=== PATIENT | female | born 1960 | race Caucasian/White ===

== ENCOUNTER 2018-07-25 22:34 | Emergency (ER) | payer BC ==
[~2018-07-25] VITALS: Ht 154.9 cm; Wt 102.3 kg
[2018-07-25] MEDS ORDERED: ONDANSETRON 4MG/2ML VIAL (J2405) As Ordered ONE (22:57)
[2018-07-25] MEDS ORDERED: ONDANSETRON 4MG/2ML VIAL (J2405) IV ONE (23:15)
[2018-07-25] MEDS ORDERED: NS 1,000 ML IV ONE (23:15)
[2018-07-25 23:58] LABS: BASO # 0.1 10^3/uL (0.0-0.2); BASO % 0.3 % (0.0-1.0); EOS % 0.1 % (0.0-3.0); HEMATOCRIT 45.9 % (36.0-47.0); HEMOGLOBIN 15.1 g/dl (12.0-15.5); LYMPH # 0.5 10^3/uL (1.5-4.5); LYMPH % 2.8 % (24.0-44.0); MEAN CORPUSCULAR HEMOGLOBIN 30.1 pg (27.0-33.0); MEAN CORPUSCULAR HGB CONC 32.9 g/dl (32.0-36.5); MEAN CORPUSCULAR VOLUME 91.4 fl (80.0-96.0); MONO # 0.9 10^3/uL (0.0-0.8); MONO % 4.7 % (0.0-5.0); NEUTROPHILS # 17.5 10^3/uL (1.8-7.7); NEUTROPHILS % 91.6 % (36.0-66.0); PLATELET COUNT, AUTOMATED 363 10^3/uL (150-450); RED BLOOD COUNT 5.02 10^6/uL (4.00-5.40); WHITE BLOOD COUNT 19.1 10^3/uL (4.0-10.0)
[2018-07-26 00:12] LABS: PARTIAL THROMBOPLASTIN TIME 22.8 SECONDS (25.4-37.6); PROTHROMBIN TIME 13.3 SECONDS (12.1-14.4)
[2018-07-26] MEDS ORDERED: SYNT25TA PO (00:14)
[2018-07-26] MEDS ORDERED: PRED1TABL PO (00:14)
[2018-07-26] MEDS ORDERED: WELLTAB40 PO (00:14)
[2018-07-26] MEDS ORDERED: HYDR7.5T66 PO (00:14)
[2018-07-26] MEDS ORDERED: TORS20TA2 PO (00:14)
[2018-07-26] MEDS ORDERED: KETOROLAC 30 MG/ML VIAL (J1885) IV ONE (00:15)
[2018-07-26 00:24] LABS: ALT/SGPT 27 U/L (12-78); BILIRUBIN,DIRECT 0.3 MG/DL (0.0-0.2); BLOOD UREA NITROGEN 17 MG/DL (7-18); CALCIUM LEVEL 8.7 MG/DL (8.5-10.1); CARBON DIOXIDE LEVEL 25 MEQ/L (21-32); CHLORIDE LEVEL 107 MEQ/L (98-107); CPK CREATINE PHOSPHOKINASE 111 U/L (26-192); CREATININE FOR GFR 0.88 MG/DL (0.55-1.30); GLOMERULAR FILTRATION RATE > 60.0 (>51); GLUCOSE, FASTING 138 MG/DL (70-100); LIPASE 110 U/L (73-393); MB/CK RELATIVE INDEX 1.98 (< OR =4); POTASSIUM SERUM 3.8 MEQ/L (3.5-5.1); SODIUM LEVEL 140 MEQ/L (136-145); TOTAL PROTEIN 7.4 GM/DL (6.4-8.2); TROPONIN I < 0.02 NG/ML (< 0.10)
[2018-07-26] MEDS ORDERED: METOCLOPRAMIDE INJ 10MG/2ML VIAL (J2765) IV ONE (00:30)
[2018-07-26] MEDS ORDERED: REGL10TA6 PO (01:46)
[2018-07-26] MEDS ORDERED: ONDA4TAB6 PO (01:46)
[2018-07-26 02:13] VITALS: BP 101/59
== END 2018-07-26 02:16 | disposition home or self-care (01) ==
LOC: M ED 22:34
DX: A08.39 Other viral enteritis (principal)
CPT/HCPCS: 80048; 80076; 82550; 82553; 83690; 84484; 85025; 85610; 85730; 87507; 93041; 96361; 96374; 96375; 99285; J1885; J2405; J2765

== ENCOUNTER → 2018-09-21 | Outpatient (REF) | payer BC ==
[~2018-09-21] MED LIST: HYDR7.5T66 PO; ONDA4TAB6 PO; PRED1TABL PO; REGL10TA6 PO; SYNT25TA PO; TORS20TA2 PO; WELLTAB40 PO
[2018-09-21 18:39] LABS: PERCENT SATURATION 26.6 % (13.2-45.0)
[2018-09-21 18:42] LABS: FOLATE 14.3 NG/ML
[2018-09-21 19:04] LABS: HEMATOCRIT 40.4 % (36.0-47.0); HEMOGLOBIN 13.2 g/dl (12.0-15.5); MEAN CORPUSCULAR HEMOGLOBIN 30.4 pg (27.0-33.0); MEAN CORPUSCULAR HGB CONC 32.7 g/dl (32.0-36.5); MEAN CORPUSCULAR VOLUME 93.1 fl (80.0-96.0); PLATELET COUNT, AUTOMATED 318 10^3/uL (150-450); RED BLOOD COUNT 4.34 10^6/uL (4.00-5.40); WHITE BLOOD COUNT 9.4 10^3/uL (4.0-10.0)
== END ==
LOC: M LAB REF 17:38
DX: D50.9 Iron deficiency anemia, unspecified (principal); D51.9 Vitamin B12 deficiency anemia, unspecified; D52.9 Folate deficiency anemia, unspecified; D55.9 Anemia due to enzyme disorder, unspecified; R53.83 Other fatigue

== ENCOUNTER → 2019-02-25 | Outpatient (REF) | payer BC ==
[2019-02-25 11:54] LABS: ALT/SGPT 31 U/L (12-78); BILIRUBIN,TOTAL 0.8 MG/DL (0.2-1.0); BLOOD UREA NITROGEN 16 MG/DL (7-18); CALCIUM LEVEL 9.2 MG/DL (8.5-10.1); CARBON DIOXIDE LEVEL 31 MEQ/L (21-32); CHLORIDE LEVEL 106 MEQ/L (98-107); CREATININE FOR GFR 0.79 MG/DL (0.55-1.30); GLOMERULAR FILTRATION RATE > 60.0 (>51); GLUCOSE, FASTING 91 MG/DL (70-100); POTASSIUM SERUM 4.5 MEQ/L (3.5-5.1); SODIUM LEVEL 141 MEQ/L (136-145); TOTAL PROTEIN 7.3 GM/DL (6.4-8.2)
[2019-02-25 12:02] LABS: BLOOD UREA NITROGEN 17 MG/DL (7-18); CARBON DIOXIDE LEVEL 30 MEQ/L (21-32); CHLORIDE LEVEL 106 MEQ/L (98-107); CREATININE FOR GFR 0.76 MG/DL (0.55-1.30); GLOMERULAR FILTRATION RATE > 60.0 (>51); GLUCOSE, FASTING 89 MG/DL (70-100); POTASSIUM SERUM 4.5 MEQ/L (3.5-5.1); SODIUM LEVEL 140 MEQ/L (136-145)
[2019-02-25 12:32] LABS: HEMOGLOBIN A1c 5.8 %
== END ==
LOC: M SFHCLERA 09:04
PROVIDERS: ATTEND Family Medicine
DX: E03.9 Hypothyroidism, unspecified (principal); E83.110 Hereditary hemochromatosis; I10 Essential (primary) hypertension

== ENCOUNTER 2019-07-19 21:28 | Emergency (ER) | payer BC ==
[~2019-07-19] VITALS: Ht 154.9 cm; Wt 112.3 kg
[2019-07-19] MEDS ORDERED: LISI-1046 PO (21:34)
[2019-07-19] MEDS ORDERED: BRIN10TA4 PO (21:34)
[2019-07-19 22:08] LABS: BASO # 0.1 10^3/uL (0.0-0.2); BASO % 0.5 % (0.0-1.0); EOS # 0.1 10^3/uL (0.0-0.5); EOS % 1.3 % (0.0-3.0); HEMATOCRIT 39.7 % (36.0-47.0); HEMOGLOBIN 13.3 g/dl (12.0-15.5); LYMPH # 2.4 10^3/uL (1.5-5.0); LYMPH % 22.8 % (24.0-44.0); MEAN CORPUSCULAR HEMOGLOBIN 31.3 pg (27.0-33.0); MEAN CORPUSCULAR HGB CONC 33.5 g/dl (32.0-36.5); MEAN CORPUSCULAR VOLUME 93.4 fl (80.0-96.0); MONO # 0.9 10^3/uL (0.0-0.8); NEUTROPHILS # 6.9 10^3/uL (1.5-8.5); PLATELET COUNT, AUTOMATED 289 10^3/uL (150-450); RED BLOOD COUNT 4.25 10^6/uL (4.00-5.40); WHITE BLOOD COUNT 10.5 10^3/uL (4.0-10.0)
[2019-07-19 22:38] LABS: BLOOD UREA NITROGEN 22 MG/DL (7-18); CALCIUM LEVEL 8.9 MG/DL (8.5-10.1); CARBON DIOXIDE LEVEL 28 MEQ/L (21-32); CHLORIDE LEVEL 106 MEQ/L (98-107); CK-MB VALUE MASS 2.4 NG/ML (<3.6); CPK CREATINE PHOSPHOKINASE 121 U/L (26-192); CREATININE FOR GFR 0.79 MG/DL (0.55-1.30); GLOMERULAR FILTRATION RATE > 60.0 (>51); GLUCOSE, FASTING 91 MG/DL (70-100); MB/CK RELATIVE INDEX 1.98 (< OR =4); NT-PRO BNP 20 PG/ML (<125); POTASSIUM SERUM 4.1 MEQ/L (3.5-5.1); SODIUM LEVEL 141 MEQ/L (136-145); TROPONIN I < 0.02 NG/ML (< 0.10)
[2019-07-19 23:17] VITALS: BP 119/59
--- NOTE | 2019-07-20 03:09 | REP ---
Clinical: Chest pain . Comparison: None . Findings: The mediastinum and cardiac silhouette are stable and within normal limits for portable technique. The lung driscoll are clear without acute consolidation, effusion, or pneumothorax. Skeletal structures are intact. Impression: No acute cardiopulmonary process appreciated. Electronically Signed by Davie Sheets MD 07/20/2019 03:00 A
--- NOTE | 2019-07-20 20:53 | ECGEPIP ---
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
== END 2019-07-19 23:19 | disposition home or self-care (01) ==
LOC: M ED 21:28
DX: I50.9 Heart failure, unspecified (principal); I11.0 Hypertensive heart disease with heart failure; F32.9 Major depressive disorder, single episode, unspecified; K21.9 Gastro-esophageal reflux disease without esophagitis; Z87.891 Personal history of nicotine dependence; Z91.041 Radiographic dye allergy status; Z88.2 Allergy status to sulfonamides; Z88.8 Allergy status to other drugs, medicaments and biological substances; Z88.1 Allergy status to other antibiotic agents; Z79.899 Other long term (current) drug therapy; Z79.52 Long term (current) use of systemic steroids

== ENCOUNTER → 2019-08-09 | Outpatient (CLI) | payer BC ==
[~2019-08-09] MED LIST changes: +BRIN10TA4 PO; +LISI-1046 PO
== END ==
LOC: M LABSMTC 10:10
PROVIDERS: ATTEND Family Medicine
DX: Z11.59 Encounter for screening for other viral diseases (principal); Z20.828 Contact with and (suspected) exposure to other viral communicable diseases

== ENCOUNTER → 2019-08-26 | Outpatient (REF) | payer BC ==
[2019-08-26 11:58] LABS: HEMATOCRIT 41.8 % (36.0-47.0); MEAN CORPUSCULAR HEMOGLOBIN 31.7 pg (27.0-33.0); MEAN CORPUSCULAR HGB CONC 33.5 g/dl (32.0-36.5); MEAN CORPUSCULAR VOLUME 94.6 fl (80.0-96.0); PLATELET COUNT, AUTOMATED 291 10^3/uL (150-450); RED BLOOD COUNT 4.42 10^6/uL (4.00-5.40); WHITE BLOOD COUNT 8.3 10^3/uL (4.0-10.0)
[2019-08-26 12:06] LABS: BLOOD UREA NITROGEN 17 MG/DL (7-18); CALCIUM LEVEL 8.9 MG/DL (8.5-10.1); CARBON DIOXIDE LEVEL 31 MEQ/L (21-32); CHLORIDE LEVEL 105 MEQ/L (98-107); CHOLESTEROL LEVEL 161 MG/DL (<200); CHOLESTEROL RISK RATIO 2.439 (<5); CREATININE FOR GFR 0.71 MG/DL (0.55-1.30); FERRITIN 91 NG/ML (8-252); GLOMERULAR FILTRATION RATE > 60.0 (>51); GLUCOSE, FASTING 92 MG/DL (70-100); HDL CHOLESTEROL 66 MG/DL (>40); IRON (FE) 109 UG/DL (50-170); LDL CHOLESTEROL 79 MG/DL (<100); NON-HDL-C 95 MG/DL; PERCENT SATURATION 35.5 % (13.2-45.0); POTASSIUM SERUM 3.9 MEQ/L (3.5-5.1); SODIUM LEVEL 140 MEQ/L (136-145); TOTAL IRON BINDING CAPACITY 307 UG/DL (250-450); TRIGLYCERIDES LEVEL 80 MG/DL (<150)
== END ==
LOC: M SFHCLERA 08:27
PROVIDERS: ATTEND Family Medicine
DX: E83.110 Hereditary hemochromatosis (principal); I10 Essential (primary) hypertension

== ENCOUNTER → 2019-09-08 | Outpatient (REF) | payer BC | LOC: M LAB REF 10:46 | PROVIDERS: ATTEND Dermatology | DX: L28.0 Lichen simplex chronicus (principal); D23.111 Other benign neoplasm of skin of right upper eyelid, including canthus ==

== ENCOUNTER → 2019-12-05 | Outpatient (CLI) | payer BC ==
[~2019-12-05] MED LIST changes: +E-Z-GAS II EFFERVESCENT PACKET (SODIUM BICARB./CITRIC ACID/SIMETHICONE) As Ordered ONE; +E-Z-HD 98% w/w 340GM SUSP BTL As Ordered ONE; +E-Z-PAQUE 96% w/w SUSP 176GM BTL As Ordered ONE; +IBUP200T45 PO; -LISI-1046 PO; +LISI2.5T2 PO
--- NOTE | 2020-01-05 15:27 | REP ---
CHEST X-RAY: SINGLE VIEW HISTORY: Unavailable. COMPARISON: Chest x-ray 07/19/2019. This report was delayed due to a protracted network disruption experienced by this facility. FINDINGS: The lungs are symmetrically aerated and clear. The pleural angles are sharp. Cardiomediastinal silhouette is unremarkable. The aorta is somewhat tortuous as before. Pulmonary vasculature is not increased. No significant bony abnormality. IMPRESSION: No active disease. MTDD
== END ==
LOC: M RAD 07:36
PROVIDERS: ATTEND Otolaryngology
DX: K21.9 Gastro-esophageal reflux disease without esophagitis (principal)

== ENCOUNTER → 2019-12-13 | Outpatient (CLI) | payer BC ==
[~2019-12-13] MED LIST changes: -E-Z-GAS II EFFERVESCENT PACKET (SODIUM BICARB./CITRIC ACID/SIMETHICONE) As Ordered ONE; -E-Z-HD 98% w/w 340GM SUSP BTL As Ordered ONE; -E-Z-PAQUE 96% w/w SUSP 176GM BTL As Ordered ONE
== END ==
LOC: M LABSMTC 12-12 10:50
PROVIDERS: ATTEND Pediatrics
DX: Z11.59 Encounter for screening for other viral diseases (principal)
CPT/HCPCS: C9803; U0002

== ENCOUNTER → 2019-12-26 | Outpatient (CLI) | payer BC ==
--- NOTE | 2020-01-27 09:11 | REP ---
BILATERAL LOWER EXTREMITY DUPLE VENOUS ULTRASOUND WITH REFLUX HISTORY: Venous insufficiency. Varicose veins. FINDINGS: The deep veins are anechoic and fully compressible on two-dimensional scanning from groin to the popliteal fossa in each lower extremity. Color flow imaging is homogeneous. Spectral Doppler interrogation shows intact respiratory variation flow and normal manual augmentation flow. There is no evidence of deep vein thrombosis (DVT) on either side. REFLUX FINDINGS: Right lower extremity venous reflux is observed in the proximal and mid greater saphenous vein greater than 0.5 seconds in duration. There is a posterior collateral extending to the mid and distal thigh. No deep system reflux is seen. The anterior accessory saphenous vein measures 9 mm in greatest diameter. The greater saphenous vein measures 7.6 mm proximally, 4.2 mm at mid thigh, and 3.2 mm at the knee. The lesser saphenous vein diameter is 2.5 mm. In the left lower extremity, there is mild reflux in the mid and distal greater saphenous vein with a collateral to the knee. Reflux in the mid thigh greater saphenous vein duration is 1.5 seconds and at the knee 7.4 seconds. The greater saphenous vein diameters are 8.6, 5.0, and 3.7 mm respectively in the proximal, mid thigh, and knee level regions. Lesser saphenous vein diameter is 4.9 mm. An anterior accessory greater saphenous vein is present 5.5 mm in diameter without observable reflux. No deep system reflux is observed. IMPRESSION: Mild bilateral superficial system reflux as above. No evidence of deep vein thrombosis (DVT MTDD
== END ==
LOC: M RAD 06:13
PROVIDERS: ATTEND Physician Assistant
DX: I87.2 Venous insufficiency (chronic) (peripheral) (principal)

== ENCOUNTER → 2020-01-17 | Outpatient (CLI) | payer BC | LOC: M LABSMTC 10:17 | PROVIDERS: ATTEND Pediatrics | DX: Z20.828 Contact with and (suspected) exposure to other viral communicable diseases (principal) | CPT/HCPCS: C9803; U0002 ==

== ENCOUNTER → 2020-02-23 | Outpatient (REF) | payer BC ==
[2020-02-23 14:09] LABS: BASO % 0.4 % (0.0-1.0); EOS # 0.1 10^3/uL (0.0-0.5); EOS % 0.7 % (0.0-3.0); HEMATOCRIT 44.1 % (36.0-47.0); HEMOGLOBIN 14.1 g/dl (12.0-15.5); LYMPH # 1.9 10^3/uL (1.5-5.0); LYMPH % 19.6 % (24.0-44.0); MEAN CORPUSCULAR HEMOGLOBIN 30.9 pg (27.0-33.0); MEAN CORPUSCULAR VOLUME 96.5 fl (80.0-96.0); MONO # 0.8 10^3/uL (0.0-0.8); NEUTROPHILS # 6.8 10^3/uL (1.5-8.5); NEUTROPHILS % 70.9 % (36.0-66.0); PLATELET COUNT, AUTOMATED 323 10^3/uL (150-450); RED BLOOD COUNT 4.57 10^6/uL (4.00-5.40); WHITE BLOOD COUNT 9.5 10^3/uL (4.0-10.0)
[2020-02-23 14:12] LABS: INR 0.9; PROTHROMBIN TIME 12.3 SECONDS (12.5-14.3)
[2020-02-23 14:36] LABS: ALBUMIN 3.9 GM/DL (3.2-5.2); ALT/SGPT 30 U/L (12-78); BILIRUBIN,TOTAL 0.4 MG/DL (0.2-1.0); BLOOD UREA NITROGEN 21 MG/DL (7-18); CALCIUM LEVEL 9.1 MG/DL (8.5-10.1); CARBON DIOXIDE LEVEL 27 MEQ/L (21-32); CHLORIDE LEVEL 107 MEQ/L (98-107); FERRITIN 92 NG/ML (8-252); GLOMERULAR FILTRATION RATE > 60.0 (>51); GLUCOSE, FASTING 75 MG/DL (70-100); IRON (FE) 111 UG/DL (50-170); POTASSIUM SERUM 4.2 MEQ/L (3.5-5.1); SODIUM LEVEL 140 MEQ/L (136-145); TOTAL IRON BINDING CAPACITY 300 UG/DL (250-450); TOTAL PROTEIN 7.4 GM/DL (6.4-8.2)
== END ==
LOC: M LAB REF 13:24
PROVIDERS: ATTEND Family Medicine
DX: Z01.811 Encounter for preprocedural respiratory examination (principal); E83.110 Hereditary hemochromatosis; E03.9 Hypothyroidism, unspecified

== ENCOUNTER → 2020-03-05 | Outpatient (CLI) | payer BC ==
--- NOTE | 2020-03-07 07:11 | REP ---
INDICATION: ACUTE HYPOTHYROIDISM COMPARISON: None. TECHNIQUE: Santana scale and color evaluation of the thyroid gland using the linear high frequency transducer. FINDINGS: The thyroid gland is mildly heterogeneous without discrete nodule or cystic changes appreciated. Right thyroid lobe measures 4.1 x 1.6 x 1.8 cm. Isthmus measures 4.9 mm in width. Left thyroid lobe measures 4.3 x 1.1 x 1.4 cm. IMPRESSION: Heterogeneous thyroid gland without discrete cystic or nodular components appreciated. <Electronically signed by Davie Sheets > 03/07/20 0715
== END ==
LOC: M RAD 12:34
PROVIDERS: ATTEND Family Medicine
DX: E03.9 Hypothyroidism, unspecified (principal)

== ENCOUNTER → 2020-03-10 | Outpatient (CLI) | payer BC ==
--- NOTE | 2020-03-13 13:30 | SLEEPCENT ---
DATE: 03/10/2020 ORDERED BY: KAREEM George Nocturnal polysomnography was performed for the evaluation of sleep physiology in this patient with a history of excessive somnolence and nonrestorative sleep who has comorbidities of hypertension, acid reflux, and fibromyalgia. Nine hours and 45 minutes of data were reviewed. There were 398.5 minutes of sleep identified. Sleep latency was prolonged at 69.5 minutes. REM latency was prolonged at 163 minutes. Sleep architecture showed poor progression. There were three REM cycles noted. Overall sleep efficiency was 69.4%. The electrocardiogram showed a sinus rhythm with an average heart rate of 70 beats per minute. EEG showed coarsening in background with alpha intrusion throughout and some artifactual changes. There were no focal events identified. There were 162 respiratory events identified of 10 seconds in duration or greater for an apnea-hypopnea index of 24.4. The events were not stage-related nor were they related to body posture. Arousals from respiratory events occurred 4.1 times per hour, and oxygen desaturations were seen into the 80s with some activity in the limb leads but no trains of events. Snoring was noted throughout the study. IMPRESSION: Obstructive sleep apnea syndrome (G47.33). Apnea-hypopnea index 24.4. RECOMMENDATION: The patient should be encouraged to return to [facility] for [facility]. In the interim, alcohol and sedative avoidance should be practiced and caution exercised during the operation of motor vehicles. MTDD
== END ==
LOC: M SLEEP 20:00
PROVIDERS: ATTEND Nurse Practitioner Family
DX: G47.33 Obstructive sleep apnea (adult) (pediatric) (principal)

== ENCOUNTER → 2020-03-11 | Outpatient (CLI) | payer BC | LOC: M LABSMTC 10:45 | PROVIDERS: ATTEND Anesthesiology | DX: Z01.812 Encounter for preprocedural laboratory examination (principal); Z20.828 Contact with and (suspected) exposure to other viral communicable diseases | CPT/HCPCS: C9803; U0003 ==

== ENCOUNTER → 2020-03-17 | Outpatient (CLI) | payer BC ==
--- NOTE | 2020-03-21 07:12 | SLEEPCENT ---
DATE: 03/17/2020 ORDERED BY: KAREEM George Nocturnal polysomnography was performed for the titration of pressure therapy in this patient with obstructive sleep apnea syndrome, apnea-hypopnea index 24.4. For testing, a ResMed AirTouch F20 full face mask of small size was used, 4 cm of water pressure were applied to the circuit and the lights were extinguished. Seven hours and 14 minutes of data were reviewed. There were 298.5 minutes of sleep identified. Sleep latency was prolonged at 56 minutes. REM latency was prolonged at 157 minutes. Sleep architecture improved late in the study on optimal pressure therapy and there were two REM cycles noted. Overall sleep efficiency was 69.5%. The electrocardiogram showed a sinus rhythm with an average heart rate of 68 beats per minute. EEG showed reasonably normal waveforms for wake and sleep. Respiratory were fully palliated with CPAP at a pressure of 7. Remaining measures of sleep physiology were normal. IMPRESSION: Obstructive sleep apnea syndrome (G47.33). RECOMMENDATION: Nightly use of pressure therapy 7 cm of water. MTDD
== END ==
LOC: M SLEEP 20:00
PROVIDERS: ATTEND Nurse Practitioner Family
DX: G47.33 Obstructive sleep apnea (adult) (pediatric) (principal)

== ENCOUNTER → 2020-04-17 | Outpatient (REF) | payer BC ==
[2020-04-17 14:11] LABS: BASO # 0.1 10^3/uL (0.0-0.2); BASO % 0.8 % (0.0-1.0); EOS # 0.1 10^3/uL (0.0-0.5); HEMATOCRIT 43.3 % (36.0-47.0); LYMPH # 2.2 10^3/uL (1.5-5.0); LYMPH % 25.8 % (24.0-44.0); MEAN CORPUSCULAR HEMOGLOBIN 31.2 pg (27.0-33.0); MEAN CORPUSCULAR HGB CONC 32.3 g/dl (32.0-36.5); MEAN CORPUSCULAR VOLUME 96.4 fl (80.0-96.0); MONO # 0.6 10^3/uL (0.0-0.8); NEUTROPHILS # 5.6 10^3/uL (1.5-8.5); NEUTROPHILS % 64.8 % (36.0-66.0); PLATELET COUNT, AUTOMATED 304 10^3/uL (150-450); RED BLOOD COUNT 4.49 10^6/uL (4.00-5.40); WHITE BLOOD COUNT 8.7 10^3/uL (4.0-10.0)
[2020-04-17 14:43] LABS: ERYTHROCYTE SEDIMENTATION RATE 7 mm/hr (0-30)
[2020-04-17 14:49] LABS: C REACTIVE PROTEIN QUANTITATIV 0.47 MG/DL (0.00-0.30); RHEUMATOID FACTOR QUANT < 10.0 IU/ML (<15.0)
[2020-04-18 23:21] LABS: ANA (HEP2) Negative (.)
== END ==
LOC: M LAB REF 13:38
PROVIDERS: ATTEND Family Medicine
DX: R53.83 Other fatigue (principal)

== ENCOUNTER → 2020-04-20 | Outpatient (CLI) | payer SELFPAY | LOC: M LABSMTC 10:19 | PROVIDERS: ATTEND Pediatrics | DX: Z20.828 Contact with and (suspected) exposure to other viral communicable diseases (principal) ==

== ENCOUNTER → 2020-04-24 | Outpatient (REF) | payer BC | LOC: M SFHCLERA 18:58 | PROVIDERS: ATTEND Family Medicine | DX: R51.9 Headache, unspecified (principal) ==

== ENCOUNTER → 2020-05-07 | Outpatient (CLI) | payer SELFPAY | LOC: M LABSMTC 10:45 | PROVIDERS: ATTEND Pediatrics | DX: Z20.828 Contact with and (suspected) exposure to other viral communicable diseases (principal) ==

== ENCOUNTER → 2020-08-14 | Outpatient (REF) | payer BC ==
[~2020-08-14] MED LIST changes: +SUMA20SP
== END ==
LOC: M LAB REF 18:30
PROVIDERS: ATTEND Physician Assistant
DX: L57.0 Actinic keratosis (principal)

== ENCOUNTER 2020-09-19 23:44 | Emergency (ER) | payer BC ==
[~2020-09-19] VITALS: Ht 154.9 cm; Wt 116.4 kg
[2020-09-19 23:45] VITALS: BP 153/86
[2020-09-19] MEDS ORDERED: BRIN1TAB3 (23:53)
[2020-09-19] MEDS ORDERED: HYDR200T3 (23:53)
[2020-09-19] MEDS ORDERED: VITA50005 (23:53)
[2020-09-20] MEDS ORDERED: predniSONE 20 MG TAB PO ONE (01:30)
[2020-09-20] MEDS ORDERED: diphenhydrAMINE 50MG CAP PO ONE (01:30)
== END 2020-09-20 02:06 | disposition home or self-care (01) ==
LOC: M ED 23:44
DX: R22.0 Localized swelling, mass and lump, head (principal); I11.0 Hypertensive heart disease with heart failure; I50.9 Heart failure, unspecified; G47.30 Sleep apnea, unspecified; F33.9 Major depressive disorder, recurrent, unspecified; F41.9 Anxiety disorder, unspecified; E03.9 Hypothyroidism, unspecified; K76.89 Other specified diseases of liver; K21.9 Gastro-esophageal reflux disease without esophagitis; Z79.899 Other long term (current) drug therapy; Z79.890 Hormone replacement therapy; Z88.1 Allergy status to other antibiotic agents; Z88.2 Allergy status to sulfonamides; Z88.7 Allergy status to serum and vaccine; Z88.8 Allergy status to other drugs, medicaments and biological substances; Z91.041 Radiographic dye allergy status
CPT/HCPCS: 99283; J7512

== ENCOUNTER → 2020-11-30 | Outpatient (CLI) | payer BC ==
[~2020-11-30] MED LIST changes: +BRIN1TAB3; +CYCL-707 PO; +ERGO500029; +HYDR200T3; +K-TA10TA2 PO; +PRED20TA PO
--- NOTE | 2020-11-30 10:02 | REP ---
INDICATION: MUSCLE STRAIN LOW LEG. COMPARISON: None. TECHNIQUE: Four views of the left calf. FINDINGS: Four views of the left tib fib demonstrate plantar calcaneal spurring and osteoarthritis at the knee. There is a well corticated accessory ossicle adjacent to the medial malleolus and another adjacent to the lateral malleolus.. Bones, joints, and soft tissues are otherwise unremarkable.. No opaque foreign body noted. No fracture or subluxation seen. IMPRESSION: Osteoarthritic changes at the knee and accessory ossicles at the ankle. Heel spur. No acute bony abnormality.. <Electronically signed by Kris Ludwig > 11/30/20 [id number]
== END ==
LOC: M WUC 08:44
PROVIDERS: ATTEND Physician Assistant
DX: S86.212A Strain of muscle(s) and tendon(s) of anterior muscle group at lower leg level, left leg, initial encounter (principal); W18.30XA Fall on same level, unspecified, initial encounter; Y92.009 Unspecified place in unspecified non-institutional (private) residence as the place of occurrence of the external cause

== ENCOUNTER 2020-12-04 15:27 | Emergency (ER) | payer BC ==
[~2020-12-04] VITALS: Ht 154.9 cm; Wt 113.7 kg
[~2020-12-04 15:27] MED LIST changes: -CYCL-707 PO; -IBUP200T45 PO; +IBUP200T46 PO; -LISI2.5T2 PO; +LISI2.5T9 PO; -PRED20TA PO; -SUMA20SP; +SUMA20SP4
[2020-12-04] MEDS ORDERED: PRED20TA PO (16:02)
[2020-12-04] MEDS ORDERED: CYCL-707 PO (16:02)
[2020-12-04] MEDS ORDERED: diphenhydrAMINE 50MG/ML VIAL (J1200) IV STA (18:00)
[2020-12-04] MEDS ORDERED: methylPREDNISolone 125MG 2ML VIAL IV ONE (18:00)
[2020-12-04] MEDS ORDERED: ISOVUE-370 76% 100ML VIAL As Ordered ONE (18:25)
[2020-12-04 21:15] VITALS: BP 129/70
[2021-05-01] MEDS ORDERED: MYCO500T (11:53)
== END 2020-12-04 21:32 | disposition home or self-care (01) ==
LOC: M ED 15:27
DX: R06.02 Shortness of breath (principal); R91.1 Solitary pulmonary nodule; M79.662 Pain in left lower leg; I50.9 Heart failure, unspecified; J45.909 Unspecified asthma, uncomplicated; Z79.899 Other long term (current) drug therapy; Z79.890 Hormone replacement therapy; Z88.1 Allergy status to other antibiotic agents; Z88.2 Allergy status to sulfonamides; Z88.7 Allergy status to serum and vaccine; Z88.8 Allergy status to other drugs, medicaments and biological substances; Z91.041 Radiographic dye allergy status
CPT/HCPCS: 71275; 80047; 93971; 96374; 96375; 99284; J1200; J2930; Q9967

== ENCOUNTER → 2021-01-01 | Outpatient (CLI) | payer BC ==
[~2021-01-01] MED LIST changes: +CYCL-707 PO; +IBUP200T45 PO; -IBUP200T46 PO; +PRED20TA PO; +SUMA20SP; -SUMA20SP4
--- NOTE | 2021-01-01 15:08 | PFTRPT ---
Site: 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 Pt was given four puffs of albuterol for post bronchodilator. Review Status: Not Reviewed Pre-Bronch Post-Bronch Pred Actual %Pred Actual %Chng SPIROMETRY FVC (L) 2.96 2.76 93 2.83 2 FEV1 (L) 2.29 2.42 105 2.48 2 FEV1/FVC (%) 78 88 112 87 FEF 25% (L/sec) 4.68 4.35 92 5.12 17 FEF 50% (L/sec) 3.64 3.45 94 4.73 37 FEF 75% (L/sec) 1.22 2.00 164 2.28 13 FEF 25-75% (L/sec) 2.20 3.14 142 3.78 20 FEF Max (L/sec) 5.87 4.60 78 6.67 45 FIVC (L) 2.85 2.85 FIF 50% (L/sec) 3.81 4.54 119 4.70 3 FIF Max (L/sec) 4.61 4.71 2 MVV (L/min) 86 98 114 Expiratory Time (sec) 6.68 6.93 3 Back Extrap Vol (L) 0.14 0.12 -17 Time To FEFmax (sec) 0.152 0.157 3 LUNG VOLUMES SVC (L) 2.77 3.03 109 IC (L) 2.02 2.90 143 ERV (L) 0.75 0.13 17 TGV (L) 2.58 2.65 102 RV (Pleth) (L) 1.83 2.53 138 TLC (Pleth) (L) 4.60 5.56 120 RV/TLC (Pleth) (%) 39 45 116 DIFFUSION DLCOunc (ml/min/mmHg) 20.45 20.37 99 DLCOcor (ml/min/mmHg) 20.45 19.33 94 DL/VA (ml/min/mmHg/L) 4.45 4.36 97 VA (L) 4.60 4.44 96 BHT (sec) 10.21 IVC (L) 2.83 TLC (SB) (L) 4.59 AIRWAYS RESISTANCE Raw (cmH2O/L/s) 1.86 0.71 38 Gaw (L/s/cmH2O) 1.03 1.50 145 sRaw (cmH2O*s) 4.76 1.77 37 sGaw (1/cmH2O*s) 0.20 0.60 300 BLOOD GASES Hgb (gm/dL) 15.3
== END ==
LOC: M CARPUL 14:13
PROVIDERS: ATTEND Nurse Practitioner Family
DX: R05 Cough (principal)

== ENCOUNTER → 2021-02-18 | Outpatient (CLI) | payer BC ==
--- NOTE | 2021-02-18 15:24 | REP ---
INDICATION: DYSPNEA COMPARISON: 12/04/2020 a contrast-enhanced examination of the chest using CT angio protocol TECHNIQUE: Standard helical CT without contrast FINDINGS: There is no significant change in the appearance of the mediastinum or pulmonary catrina. No mass or adenopathy has developed. There are no pleural or pericardial effusions. There is no significant change in appearance of the imaged upper abdomen or imaged osseous structures. Evaluation of the lung driscoll shows no change in the 7 mm sized left upper lobe nodule. There are no new abnormal nodules, masses, or opacities. There is stable mild cylindrical bronchiectasis. IMPRESSION: Stable CT examination chest with findings as described above. According to the revised Fleischner society criteria stable category 4A lesions can then be categorized is 2 lesions and for which yearly CT examination of the chest is recommended. <Electronically signed by Davie Howell > 02/18/21 [id number]
== END ==
LOC: M PLAIMG 14:34
PROVIDERS: ATTEND Nurse Practitioner Family
DX: R06.09 Other forms of dyspnea (principal); R91.8 Other nonspecific abnormal finding of lung field

== ENCOUNTER → 2021-04-17 | Outpatient (CLI) | payer BC, SELFPAY ==
[~2021-04-17] MED LIST changes: -IBUP200T45 PO; +IBUP200T46 PO
--- NOTE | 2021-04-18 03:58 | REP ---
INDICATION: TB SCREENING COMPARISON: 12/05/2019 TECHNIQUE: PA and lateral. FINDINGS: The mediastinum and cardiac silhouette are normal. The lung driscoll are clear and without acute consolidation, effusion, or pneumothorax. The skeletal structures are intact and normal. IMPRESSION: No acute cardiopulmonary process. <Electronically signed by Davie Sheets > 04/18/21 0354
== END ==
LOC: M WUC 11:30
PROVIDERS: ATTEND Family Medicine Adult Medicine
DX: Z11.1 Encounter for screening for respiratory tuberculosis (principal)

== ENCOUNTER → 2021-05-02 | Outpatient (CLI) | payer BC ==
[~2021-05-02] MED LIST changes: +MYCO500T; -SUMA20SP; +SUMA20SP4
== END ==
LOC: M RAD 08:57
PROVIDERS: ATTEND Student in an Organized Health Care Education/Training Program
DX: R10.9 Unspecified abdominal pain (principal)

== ENCOUNTER → 2021-08-30 | Outpatient (CLI) | payer BC ==
[2021-08-30 11:16] LABS: ALBUMIN 3.8 GM/DL (3.2-5.2); ALT/SGPT 32 U/L (12-78); BILIRUBIN,TOTAL 0.6 MG/DL (0.2-1.0); BLOOD UREA NITROGEN 17 MG/DL (7-18); CALCIUM LEVEL 9.3 MG/DL (8.8-10.2); CARBON DIOXIDE LEVEL 28 MEQ/L (21-32); CHLORIDE LEVEL 107 MEQ/L (98-107); CREATININE FOR GFR 0.71 MG/DL (0.55-1.30); FREE T4 0.77 NG/DL (0.76-1.46); GLOMERULAR FILTRATION RATE > 60.0 (>45); GLUCOSE, FASTING 106 MG/DL (70-100); POTASSIUM SERUM 4.2 MEQ/L (3.5-5.1); SODIUM LEVEL 140 MEQ/L (136-145); THYROID STIMULATING HORMONE 0.976 uIU/ML (0.358-3.740); TOTAL PROTEIN 6.7 GM/DL (6.4-8.2)
== END ==
LOC: M LAB 09:50
PROVIDERS: ATTEND Student in an Organized Health Care Education/Training Program
DX: E03.9 Hypothyroidism, unspecified (principal)

== ENCOUNTER → 2021-08-30 | Outpatient (CLI) | payer BC ==
[2021-08-30 10:41] LABS: BASO % 0.5 % (0.0-1.0); EOS # 0.1 10^3/uL (0.0-0.5); EOS % 0.9 % (0.0-3.0); HEMATOCRIT 43.7 % (36.0-47.0); LYMPH % 11.9 % (24.0-44.0); MEAN CORPUSCULAR HEMOGLOBIN 30.2 pg (27.0-33.0); MEAN CORPUSCULAR VOLUME 94.2 fl (80.0-96.0); MONO # 0.7 10^3/uL (0.0-0.8); MONO % 8.5 % (2.0-8.0); NEUTROPHILS # 6.7 10^3/uL (1.5-8.5); NEUTROPHILS % 77.6 % (36.0-66.0); PLATELET COUNT, AUTOMATED 286 10^3/uL (150-450); RED BLOOD COUNT 4.64 10^6/uL (4.00-5.40); WHITE BLOOD COUNT 8.6 10^3/uL (4.0-10.0)
[2021-08-30 10:59] LABS: ERYTHROCYTE SEDIMENTATION RATE 3 mm/hr (0-30)
[2021-08-30 11:05] LABS: ALT/SGPT 32 U/L (12-78); C REACTIVE PROTEIN QUANTITATIV < 0.30 MG/DL (0.00-0.30); COMPLEMENT C3 133 MG/DL (90-180); COMPLEMENT C4 22 MG/DL (10-40); CREATININE FOR GFR 0.72 MG/DL (0.55-1.30); GLOMERULAR FILTRATION RATE > 60.0 (>45)
[2021-08-30 11:14] LABS: TOTAL 25(OH) VITAMIN D 24.6 NG/ML (30.0-100.0)
== END ==
LOC: M LAB 09:52
PROVIDERS: ATTEND Nurse Practitioner Family
DX: M05.9 Rheumatoid arthritis with rheumatoid factor, unspecified (principal)

== ENCOUNTER → 2021-09-10 | Outpatient (CLI) | payer BC | LOC: M RAD 10:36 | PROVIDERS: ATTEND Internal Medicine Pulmonary Disease | DX: R91.8 Other nonspecific abnormal finding of lung field (principal) ==

== ENCOUNTER → 2021-11-25 | Outpatient (REF) ==
[~2021-11-25] MED LIST changes: +HYDR-4278 PO; -HYDR7.5T66 PO
== END ==
LOC: M LABSMTC 11:36
PROVIDERS: ATTEND Family Medicine
DX: Z11.52 Encounter for screening for COVID-19 (principal)

== ENCOUNTER → 2021-12-12 | Outpatient (REF) ==
[2021-12-12 16:11] LABS: RSV AMPLIFICATION NEGATIVE (NEGATIVE)
== END ==
LOC: M EMP 13:27
PROVIDERS: ATTEND Family Medicine
DX: Z11.52 Encounter for screening for COVID-19 (principal)

== ENCOUNTER → 2021-12-18 | Outpatient (REF) | payer BC | LOC: M LAB REF 16:47 | PROVIDERS: ATTEND Nurse Practitioner Family | DX: R06.00 Dyspnea, unspecified (principal) ==